=== PATIENT | male | born 1940 | race Caucasian/White ===

== ENCOUNTER 2019-12-07 09:13 | Day surgery (SDC) | payer MEDICARE, OTHER ==
[2019-12-07 11:57] VITALS: BP 151/77
--- NOTE | 2019-12-07 13:18 | Operative Report ---
Operative Report DATE OF SURGERY: 12/07/19 Operative Report: The risks benefits and alternatives of the procedure explained to the patient in detail and informed consent is obtained.A GIF Olympus video scope was inserted into the patient's mouth and hypopharynx ,the esophagus is identified intubated and insufflated ,the scope was then advanced through the esophagus stomach and duodenum, retroflexion maneuver is done, the esophagus stomach and first and second portions of the duodenum examined. PREOPERATIVE DIAGNOSIS: Dysphagia. History of possible achalasia in the past. Referral for GI work-up to rule out Qureshi's esophagus POSTOPERATIVE DIAGNOSIS: Mild Schatzki's ring that is broken with a biopsy forcep. Gastritis status post biopsy. Distal esophageal biopsies obtained to rule out for possible Qureshi's. There is mild predilation of the proximal esophagus; if biopsies are negative may need manometry study OPERATION: EGD with biopsy SURGEON: GOPAL ESTRELLA ANESTHESIA: LMAC TISSUE REMOVED OR ALTERED: As noted above. COMPLICATIONS: None. ESTIMATED BLOOD LOSS: None. INTRAOPERATIVE FINDINGS: As noted above. PROCEDURE: Patient tolerated the procedure well. No immediate postprocedure complications are noted. Patient is discharged in good condition. Discharge date 12/07/2019. Discharge diet: Regular. Discharge activity: Regular. 2 to 3-week follow-up to discuss findings. Patient is instructed to call the office or proceed to the emergency room should there be any further problems or questions. Wait on the pathology.
== END 2019-12-07 11:57 | disposition home or self-care (01) ==
LOC: END 09:13
PROVIDERS: ATTEND Internal Medicine Gastroenterology
DX: K22.2 Esophageal obstruction (principal); K29.50 Unspecified chronic gastritis without bleeding; K22.70 Barrett's esophagus without dysplasia; Z87.891 Personal history of nicotine dependence; E78.5 Hyperlipidemia, unspecified; I10 Essential (primary) hypertension; E11.9 Type 2 diabetes mellitus without complications; Z80.0 Family history of malignant neoplasm of digestive organs; Z79.84 Long term (current) use of oral hypoglycemic drugs; Z79.899 Other long term (current) drug therapy; Z88.8 Allergy status to other drugs, medicaments and biological substances
CPT/HCPCS: 43239; 82962; 88305 ×2; 00731; J2704; J3490; 731

== ENCOUNTER 2020-04-18 03:58 | Emergency (ER) | payer MEDICARE ==
[2020-04-18] MEDS ORDERED: KETOROLAC TROMETHAMINE INJ/PF 30 MG/1 ML SDV IV ONE (04:23)
--- NOTE | 2020-04-18 04:25 | ER Document Report ---
ED General - General Mode of Arrival: Medic Information source: Patient TRAVEL OUTSIDE OF THE [place] IN LAST 30 DAYS: No <TONI OLSON - Last Filed: 04/18/20 07:10> <LIANA AHZEL - Last Filed: 04/18/20 10:55> - General Chief Complaint: Edema Stated Complaint: SWELLING IN FEET Time Seen by Provider: 04/18/20 04:01 Primary Care Provider: ROMELIA GLEASON MD [Primary Care Provider] - Follow up as needed Notes: 80-year-old male patient presenting to the emergency department chief complaint of bilateral leg pain. Patient reports on 04/10 he tried to avoid falling in his home and ended up bruising his right foot and ankle. He did not think much of it until the next morning when he woke up and had severe pain and was unable to bear weight. He states since then he has been using his left leg more and now has left leg pain. Patient went to see Dr. Alex who did an x-ray which was negative, the plan was to send him for an MRI of the right foot next week. Patient reports since then he has had multiple falls. He has not struck his head, he has not lost consciousness. He denies any history of DVT or gout. (TONI OLSON) - Related Data Allergies/Adverse Reactions: lisinopril [Lisinopril] Allergy (Unknown, Verified 12/07/19 09:21) throat itches Past Medical History - Social History Smoking Status: Never Smoker Chew tobacco use (# tins/day): No Frequency of alcohol use: None Drug Abuse: None Patient has homicidal ideation: No - Past Medical History Cardiac Medical History: Reports: Hx Hypercholesterolemia, Hx Hypertension - meds x 3 yrs Denies: Hx Coronary Artery Disease, Hx Heart Attack Pulmonary Medical History: Denies: Hx Asthma, Hx Bronchitis, Hx COPD, Hx Pneumonia Neurological Medical History: Denies: Hx Cerebrovascular Accident, Hx Seizures GI Medical History: Reports: Hx Gastroesophageal Reflux Disease Musculoskeletal Medical History: 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, L SHOULDER Past Surgical History: Reports: Hx Abdominal Surgery - hernia repair, Hx Orthopedic Surgery - hand sx - Immunizations Hx Diphtheria, Pertussis, Tetanus Vaccination: No Hx Pneumococcal Vaccination: 08/25/19 <TONI OLSON - Last Filed: 04/18/20 07:10> - Social History Family History: Reviewed & Not Pertinent <LIANA HAZEL - Last Filed: 04/18/20 10:55> Review of Systems - Review of Systems Constitutional: denies: Fever Musculoskeletal: Leg swelling, Ankle swelling, Other - Bilateral lower extremity pain -: Yes All other systems reviewed and negative <TONI OLSON - Last Filed: 04/18/20 07:10> Physical Exam <TONI OLSON - Last Filed: 04/18/20 07:10> - Vital signs Vitals: Temp Resp Pulse Ox 98.2 F 24 H 97 04/18/20 04:06 04/18/20 04:06 04/18/20 04:06 - Notes Notes: PHYSICAL EXAMINATION: GENERAL: Well-appearing, well-nourished and in no acute distress. HEAD: Atraumatic, normocephalic. EYES: Pupils equal round and reactive to light, extraocular movements intact, sclera anicteric, conjunctiva are normal. ENT: Nares patent, oropharynx clear without exudates. Dry mucous membranes. NECK: Normal range of motion, supple without lymphadenopathy LUNGS: Breath sounds clear to auscultation bilaterally and equal. No wheezes rales or rhonchi. HEART: Regular rate and rhythm without murmurs ABDOMEN: Soft, nontender, nondistended abdomen. No guarding, no rebound. No masses appreciated. Musculoskeletal: Normal range of motion, 1+ pitting edema to bilateral lower extremities. No cyanosis. NEUROLOGICAL: Cranial nerves grossly intact. Normal speech. Normal sensory, motor exams PSYCH: Normal mood, normal affect. SKIN: Slight erythema to dorsal surface of right foot. (TONI OLSON) Course - Laboratory Result Diagrams: 04/18/20 04:30 04/18/20 04:30 <TONI OLSON - Last Filed: 04/18/20 07:10> - Laboratory Result Diagrams: 04/18/20 04:30 04/18/20 04:30 - Diagnostic Test Radiology reviewed: Reports reviewed <LIANA HAZEL - Last Filed: 04/18/20 10:55> - Re-evaluation Re-evalutation: 04/18/20 07:00 Dr. Hernandez came to the bedside and assessed the patient. He made recommendations to add on some lab work, IV fluids and head CT. Patient reports pain has significantly improved since administration of IV Toradol. Handoff given to oncoming shift, Liana Hazel MANAGER CONTENT. (TONI OLSON) 04/18/20 08:00 Assumed care of patient from Toni Olson, MANAGER CONTENT x-rays and Doppler ultrasounds are pending. 04/18/20 09:27 Patient is resting comfortably he remains pain-free at this time. Reviewed all test results with patient. Counseled on need to follow-up outpatient with his primary care physician this week. Counseled to try to rest and elevate his feet to decrease the edema. Also counseled on the need to increase his fluids secondary to dehydration that was noted on his labs here in the emergency room. Patient was given a urinal to take home as he states he is now been drinking because he does not like to get up to pee frequently. He was given strict return to the emergency room guidelines. Return for any new or worsening symptoms. All questions were answered. Patient verbalized understanding and agrees with plan of care. (LIANA HAZEL) - Vital Signs Vital signs: Temp Pulse Resp BP Pulse Ox 98.2 F 16 141/72 H 95 04/18/20 04:08 04/18/20 05:31 04/18/20 05:31 04/18/20 05:31 - Laboratory Laboratory results interpreted by me: 04/18/20 04/18/20 04/18/20 04:30 04:30 04:30 RBC 4.17 L Hgb 12.7 L Hct 37.0 L Lymph % (Auto) 5.8 L Seg Neutrophils % 81.9 H BUN 23 H Creatinine 1.39 H Est GFR (MDRD) Non-Af 49 L Glucose 234 H Uric Acid 2.9 L Discharge <TONI OLSON - Last Filed: 04/18/20 07:10> <LIANA HAZEL - Last Filed: 04/18/20 10:55> - Discharge Clinical Impression: Pedal edema, Right foot pain, Dehydration, Leg pain, bilateral Condition: Stable Disposition: HOME, SELF-CARE Instructions: Dependent Edema ([facility]), Leg Pain Nonspecific ([facility]) Additional Instructions: All your test results showed no fractures, no blood clots in your legs, you were dehydrated when you arrived to the emergency room. It is imperative that you drink more water. Try to rest and elevate feet to decrease edema. Follow-up with your primary care physician this week. Return for any new or worsening symptoms. Can take Tylenol as needed for pain. Referrals: ROMELIA GLEASON MD [Primary Care Provider] - Follow up as needed
[2020-04-18 04:51] LABS: ABSOLUTE LYMPHOCYTES (AUTO) 0.6 10^3/uL (0.5-4.7); ABSOLUTE MONOCYTES (AUTO) 1.1 10^3/uL (0.1-1.4); ABSOLUTE NEUT (AUTO) 7.8 10^3/uL (1.7-8.2); BASOPHILS % (AUTO) 0.2 % (0-2); EOSINOPHILS % (AUTO) 0.3 % (0-6); HEMOGLOBIN 12.7 g/dL (13.5-17.0); LYMPHOCYTES % (AUTO) 5.8 % (13-45); MEAN CORPUSCULAR HEMOGLOBIN 30.4 pg (27.0-33.4); MEAN CORPUSCULAR HGB CONC 34.3 g/dL (32.0-36.0); MEAN CORPUSCULAR VOLUME 89 fl (80-97); MONOCYTES % (AUTO) 11.8 % (3-13); PLATELET COUNT 269 10^3/uL (150-450); RED BLOOD COUNT 4.17 10^6/uL (4.35-5.55); RED CELL DISTRIBUTION WIDTH 13.6 % (11.5-14.0); SEGMENTED NEUTROPHILS % (AUTO) 81.9 % (42-78); TOTAL CELLS COUNTED % (AUTO) 100 %; WHITE BLOOD COUNT 9.6 10^3/uL (4.0-10.5)
[2020-04-18 05:11] LABS: ALKALINE PHOSPHATASE 45 U/L (38-126); ANION GAP 14 (5-19); ASPARTATE AMINO TRANSFERASE 24 U/L (17-59); BILIRUBIN,DIRECT 0.1 mg/dL (0.0-0.4); BILIRUBIN,TOTAL 0.8 mg/dL (0.2-1.3); BLOOD UREA NITROGEN 23 mg/dL (7-20); CALCIUM 9.7 mg/dL (8.4-10.2); CARBON DIOXIDE 23 mmol/L (22-30); CHLORIDE 100 mmol/L (98-107); GLUCOSE 234 mg/dL (75-110); TOTAL PROTEIN 6.8 g/dL (6.3-8.2)
[2020-04-18 05:47] VITALS: BP 141/72
--- NOTE | 2020-04-18 05:47 | RADIOLOGY REPORT (SQ) ---
CT right foot and ankle without contrast on 04/18/2020 at 4:47 AM CLINICAL INDICATION: Right foot and ankle pain TECHNIQUE: Multiple axial images are obtained throughout the right foot and ankle without the administration of contrast. Sagittal and coronal reformatted images are also performed and reviewed. This exam was performed according to our departmental dose-optimization program, which includes automated exposure control, adjustment of the mA and/or kV according to patient size and/or use of iterative reconstruction technique. Total DLP is 122.01 mGy*cm. COMPARISON: None FINDINGS: Subcutaneous edema is noted in the foot and ankle. This may be related to anasarca or cellulitis, please correlate clinically. There are no acute fracture lines. Visualized joints are well aligned. No other bony or soft tissue abnormality is noted. IMPRESSION: Subcutaneous edema in the right foot and ankle that may be related to anasarca or cellulitis. Otherwise no acute abnormality.
[2020-04-18] MEDS ORDERED: NORMAL SALINE 1000 ML 1,000 ML IV ONE (06:29)
--- NOTE | 2020-04-18 07:19 | RADIOLOGY REPORT (SQ) ---
CT head without contrast on 04/18/2020 at 6:39 AM CLINICAL INDICATION: Multiple falls, per protocol for mechanism of injury TECHNIQUE: Multiple axial images are obtained throughout the head without the administration of contrast. This exam was performed according to our departmental dose-optimization program, which includes automated exposure control, adjustment of the mA and/or kV according to patient size and/or use of iterative reconstruction technique. Total DLP is 1017.17 mGy*cm. COMPARISON: None FINDINGS: There is no hydrocephalus. There is a tiny old left caudate lacunar infarct. There is no CT evidence of acute infarct. There is no hemorrhage. There are no abnormal extra-axial fluid collections. There is no mass, mass effect or midline shift. No bony abnormality is noted. IMPRESSION: No acute intracranial abnormality.
--- NOTE | 2020-04-18 08:20 | RADIOLOGY REPORT (SQ) ---
EXAM DESCRIPTION: PELVIS AP IMAGES COMPLETED DATE/TIME: 04/18/2020 7:42 am REASON FOR STUDY: eval for hip fracture COMPARISON: None. NUMBER OF VIEWS: One view TECHNIQUE: AP Pelvis LIMITATIONS: None. FINDINGS: MINERALIZATION: Normal. HIPS: Degenerative changes. No acute fracture or dislocation. No worrisome bone lesions. PELVIS AND SACRUM: No acute fracture or dislocation. No worrisome bone lesions. PUBIS AND ISCHIUM: No acute fracture. LOWER LUMBAR SPINE: No significant findings as visualized. SOFT TISSUES: No findings. OTHER: No other significant finding. IMPRESSION: DEGENERATIVE CHANGES IN THE HIPS. NO ACUTE FINDINGS COMMENT: Pelvic fractures are often occult on plain radiographs. If strong clinical suspicion for f racture, recommend CT or MR. TECHNICAL DOCUMENTATION: JOB ID: [id number] 2010 [employer]- All Rights Reserved Reading location - IP/workstation name: [email or web address]
--- NOTE | 2020-04-18 10:17 | RADIOLOGY REPORT (SQ) ---
EXAM DESCRIPTION: VENOUS BILATERAL LOWER IMAGES COMPLETED DATE/TIME: 04/18/2020 10:08 am REASON FOR STUDY: bilateral leg pain/swelling COMPARISON: None. TECHNIQUE: Dynamic and static louis scale and color images acquired of both lower extremity venous sy stems. Selected spectral images acquired with additional compression and augmentation maneuvers. Imag es stored on PACS. LIMITATIONS: None. FINDINGS: RIGHT LEG COMMON FEMORAL AND FEMORAL: Normal phasicity, compression and augmentation. No visualized echogenic m aterial on louis scale. No defects on color images. POPLITEAL: Normal compression and augmentation. No visualized echogenic material on louis scale. No de fects on color images. CALF VESSELS: Normal compression and augmentation. No visualized echogenic material on louis scale. No defects on color image. GSV AND SSV: GSV patent. Acute occlusive thrombus in the SSV. ANY DEEP VENOUS INSUFFICIENCY: Not evaluated. ANY EVIDENCE OF POPLITEAL CYST: No. OTHER: No other significant finding. LEFT LEG COMMON FEMORAL AND FEMORAL: Normal phasicity, compression and augmentation. No visualized echogenic m aterial on louis scale. No defects on color images. POPLITEAL: Normal compression and augmentation. No visualized echogenic material on louis scale. No de fects on color images. CALF VESSELS: Normal compression and augmentation. No visualized echogenic material on louis scale. No defects on color images. GSV AND SSV: Normal compression. No visualized echogenic material on louis scale. No defects on color images. ANY DEEP VENOUS INSUFFICIENCY: Not evaluated. ANY EVIDENCE POPLITEAL CYST: No. OTHER: No other significant finding. IMPRESSION: THROMBUS IN THE SSV OF THE RIGHT LEG. COMMENT: Preliminary report was called by the technologist to the referring clinician's office at th e time of the exam. TECHNICAL DOCUMENTATION: JOB ID: [id number] 2010 [employer]- All Rights Reserved Reading location - IP/workstation name: [email or web address]
== END 2020-04-18 09:30 | disposition home or self-care (01) ==
LOC: ER 03:58
DX: R60.0 Localized edema (principal); M79.671 Pain in right foot; M79.605 Pain in left leg; E86.0 Dehydration; L53.9 Erythematous condition, unspecified; R29.6 Repeated falls; I10 Essential (primary) hypertension; Z88.8 Allergy status to other drugs, medicaments and biological substances; M25.473 Effusion, unspecified ankle
CPT/HCPCS: 99284; 96361; 96374; 36415; 87040; 82550; 83605; 84550; 85025; 80053; 83880; 93970; 72170; 70450; 73700; J1885; J7030

== ENCOUNTER 2020-11-29 14:42 | Emergency (ER) | payer MEDICARE ==
[2020-11-29] MEDS ORDERED: IBUPROFEN 600 MG TABLET PO ONE (16:01)
--- NOTE | 2020-11-29 16:04 | ER Document Report ---
ED Medical Screen (RME) - General Chief Complaint: Neck Problem Stated Complaint: NECK PAIN Time Seen by Provider: 11/29/20 15:54 Primary Care Provider: ROMELIA GLEASON MD [Primary Care Provider] - Follow up as needed TRAVEL OUTSIDE OF THE [place] IN LAST 30 DAYS: No - HPI Notes: 11/29/20 16:01 80-year-old male with a history of [id number] diabetes, hypertension, hyperlipidemia presents to the emergency room for complaints of neck pain, chest pain with deep breaths which started today, weakness in his legs and diarrhea for the last few days but has resolved with some Imodium. Patient states his tested positive last week for Covid, he assumed himself to be positive and had not been tested. Patient states he is a former smoker, quit over 30 years ago. Patient states that his neck pain is 5 out of 5, severe and constant. Has tried [id number] Tylenol and ibuprofen without relief. Reports when he takes deep breaths and after coughing he has left-sided chest pain, denies any radiation of pain to his back or arm, denies any radiation to his neck. Patient denies any trauma or falling. Patient states has been unable to sleep due to neck pain. I have greeted and performed a rapid initial assessment of this patient. A comprehensive ED assessment and evaluation of the patient, analysis of test results and completion of the medical decision making process will be conducted by additional ED providers. PHYSICAL EXAMINATION: GENERAL: Well-appearing, well-nourished and in no acute distress. EYES: Pupils equal round extraocular movements intact, conjunctiva are normal. NECK: C-spine tenderness on palpation C4 and C5, limited range of motion to the neck CV: s1, s2 regular LUNGS: No respiratory distress Musculoskeletal: Normal range of motion NEUROLOGICAL: Normal speech, normal gait. SKIN: Warm, Dry, normal turgor, no rashes or lesions noted. The patient was evaluated during a global COVID-19 pandemic and that diagnosis was suspected/considered upon their initial presentation. Their evaluation, treatment and testing was consistent with current guidelines for patients who present with complaints or symptoms and may be related to COVID-19. 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, L SHOULDER Past Surgical History: Reports: Hx Abdominal Surgery - hernia repair, Hx Orthopedic Surgery - hand sx - Immunizations Hx Diphtheria, Pertussis, Tetanus Vaccination: No Physical Exam - Vital signs Vitals: Temp Pulse Resp BP Pulse Ox 97.8 F 102 H 21 H 129/69 H 94 11/29/20 15:11/29/20 15:11/29/20 15:11/29/20 15:11/29/20 15:09 Course - Vital Signs Vital signs: Temp Pulse Resp BP Pulse Ox 97.8 F 102 H 21 H 129/69 H 94 11/29/20 15:09 11/29/20 15:09 11/29/20 15:11/29/20 15:11/29/20 15:09 Doctor's Discharge - Discharge Referrals: ROMELIA GLEASON MD [Primary Care Provider] - Follow up as needed
[2020-11-29 16:38] LABS: ABSOLUTE EOSINOPHILS # (AUTO) 0.1 10^3/uL (0.0-0.6); ABSOLUTE LYMPHOCYTES (AUTO) 0.5 10^3/uL (0.5-4.7); ABSOLUTE MONOCYTES (AUTO) 0.8 10^3/uL (0.1-1.4); ABSOLUTE NEUT (AUTO) 3.8 10^3/uL (1.7-8.2); BASOPHILS % (AUTO) 0.6 % (0-2); EOSINOPHILS % (AUTO) 1.5 % (0-6); HEMATOCRIT 34.6 % (37.9-51.0); HEMOGLOBIN 12.2 g/dL (13.5-17.0); MEAN CORPUSCULAR HEMOGLOBIN 30.1 pg (27.0-33.4); MEAN CORPUSCULAR HGB CONC 35.1 g/dL (32.0-36.0); MEAN CORPUSCULAR VOLUME 86 fl (80-97); MONOCYTES % (AUTO) 15.1 % (3-13); PLATELET COUNT 336 10^3/uL (150-450); RED BLOOD COUNT 4.05 10^6/uL (4.35-5.55); RED CELL DISTRIBUTION WIDTH 13.2 % (11.5-14.0); SEGMENTED NEUTROPHILS % (AUTO) 72.8 % (42-78); TOTAL CELLS COUNTED % (AUTO) 100 %; WHITE BLOOD COUNT 5.2 10^3/uL (4.0-10.5)
[2020-11-29 16:55] LABS: ALBUMIN 3.8 g/dL (3.5-5.0); ALKALINE PHOSPHATASE 55 U/L (38-126); ANION GAP 9 (5-19); ASPARTATE AMINO TRANSFERASE 62 U/L (17-59); BILIRUBIN,DIRECT 0.4 mg/dL (0.0-0.4); BILIRUBIN,TOTAL 0.8 mg/dL (0.2-1.3); BLOOD UREA NITROGEN 24 mg/dL (7-20); CALCIUM 9.4 mg/dL (8.4-10.2); CARBON DIOXIDE 25 mmol/L (22-30); CHLORIDE 105 mmol/L (98-107); GLUCOSE 176 mg/dL (75-110); POTASSIUM 4.6 mmol/L (3.6-5.0)
--- NOTE | 2020-11-29 16:57 | ER Document Report ---
ED General - General Chief Complaint: Chest Pain Stated Complaint: NECK PAIN Time Seen by Provider: 11/29/20 15:54 Primary Care Provider: ROMELIA GLEASON MD [Primary Care Provider] - Follow up as needed Notes: Patient is a 80-year-old male that comes emergency department for chief complaint of neck pain, generalized weakness, a few episodes of diarrhea a few days ago. Patient states that he was exposed to his who tested positive for COVID-19 1 week ago. Patient denies sore throat, change in sense of taste or smell, chest pain, shortness of breath, cough, nausea, vomiting, or even headache. He states the diarrhea resolved and he is able to eat without having the diarrhea like previously. He denies any fevers. He states that his neck is hurt for 2 weeks, progressively worse, now he is gradually lost range of motion side to side. He denies any numbness, weakness, or any other areas of pain. He states he could not sleep last night because his neck hurt. Past medical history of hypertension, hyperlipidemia, type 2 diabetes. He denies any smoking, COPD, asthma, or cardiac history. TRAVEL OUTSIDE OF THE [place] IN LAST 30 DAYS: No - Related Data Allergies/Adverse Reactions: lisinopril [Lisinopril] Allergy (Unknown, Verified 11/29/20 18:30) throat itches Home Medications: metformin/ vitamin D,C/ glucosamine/ omeprazole/ Past Medical History - General Information source: Patient - Social History Smoking Status: Former Smoker Chew tobacco use (# tins/day): No Frequency of alcohol use: Rare Drug Abuse: None Lives with: Family Family History: Reviewed & Not Pertinent - Past Medical History Cardiac Medical History: Reports: Hx Hypercholesterolemia, Hx Hypertension - meds x 3 yrs Denies: Hx Coronary Artery Disease, Hx Heart Attack Pulmonary Medical History: Denies: Hx Asthma, Hx Bronchitis, Hx COPD, Hx Pneumonia Neurological Medical History: Denies: Hx Cerebrovascular Accident, Hx Seizures GI Medical History: Reports: Hx Gastroesophageal Reflux Disease Musculoskeletal Medical History: 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, L SHOULDER Past Surgical History: Reports: Hx Abdominal Surgery - hernia repair, Hx Orthopedic Surgery - hand sx - Immunizations Hx Diphtheria, Pertussis, Tetanus Vaccination: Yes Hx Pneumococcal Vaccination: 08/25/19 Review of Systems - Review of Systems Constitutional: See HPI EENT: No symptoms reported Cardiovascular: No symptoms reported Respiratory: No symptoms reported Gastrointestinal: See HPI Genitourinary: No symptoms reported Male Genitourinary: No symptoms reported Musculoskeletal: See HPI Skin: No symptoms reported Hematologic/Lymphatic: No symptoms reported Neurological/Psychological: See HPI Physical Exam - Vital signs Vitals: Temp Pulse Resp BP Pulse Ox 97.8 F 102 H 21 H 129/69 H 94 11/29/20 15:11/29/20 15:11/29/20 15:11/29/20 15:11/29/20 15:09 - Notes Notes: GENERAL: Alert and interactive but irritable. Does not appear to be in distress unless he attempts to move around and does so with discomfort. HEAD: Normocephalic, atraumatic. EYES: Pupils equal, round, and reactive to light. Extraocular movements intact. ENT: Oral mucosa moist, tongue midline. Oropharynx unremarkable. Airway patent. NECK: Full range of motion. Supple. Trachea midline. No lymphadenopathy. No nuchal rigidity. LUNGS: Clear to auscultation bilaterally, no wheezes, rales, or rhonchi. No respiratory distress. Non-tender chest wall. HEART: Regular rate and rhythm. No murmur ABDOMEN: Soft, non-tender. Non-distended. EXTREMITIES: Moves all 4 extremities spontaneously. No edema, normal radial and dorsalis pedis pulses bilaterally. No cyanosis. BACK: There is some generalized tenderness over the neck, there is a lot of tenderness with very tight muscles in the right paracervical musculature and somewhat in the trapezius muscles. Almost no range of motion laterally only slightly to the left. No signs of trauma. No saddle anesthesia, normal distal neurovascular exam. Moves all extremities in full range of motion. NEUROLOGICAL: Alert and oriented x3. Normal speech. Cranial nerves II through XII grossly intact. Strength 5/5 in all extremities. PSYCH: Normal affect, normal mood. SKIN: Warm, dry, normal turgor. No rashes or lesions noted. Course - Re-evaluation Re-evalutation: Patient still has extension flexion of the neck but he cannot laterally move the neck at all except minimally to the left. He has a lot of tenderness to the right trapezius and paracervical muscles with muscle spasm. CT of the neck with a lot of degenerative changes but no acute findings. Chest x-ray shows possibly developing pneumonia. Patient has been exposed to COVID-19 from his and has been tested for this. Patient denies any chest pain, shortness of breath, he does not have hypoxia, he has no symptoms with ambulation except for pain in the neck, he has no other complaints on my evaluation. Patient also denies a headache. Laboratory work-up otherwise unremarkable. I reevaluated patient, patient is demanding to be discharged immediately, declines any additional evaluation, states he will take his antibiotics, requesting medication to release the muscle spasm in his neck, states he will follow-up with primary care, states he will return if he worsens. Discharged with return precautions. - Vital Signs Vital signs: Temp Pulse Resp BP Pulse Ox 98.5 F 98 16 138/76 H 96 11/29/20 19:04 11/29/20 19:04 11/29/20 19:04 11/29/20 19:04 11/29/20 19:04 - Laboratory Results Result Diagrams: 11/29/20 16:25 11/29/20 16:25 Laboratory Results Interpreted: 11/29/20 11/29/20 16:25 16:25 RBC 4.05 L Hgb 12.2 L Hct 34.6 L Lymph % (Auto) 10.0 L [place] % (Auto) 15.1 H BUN 24 H Glucose 176 H AST 62 H ALT 61 H Critical Laboratory Results Reviewed: No Critical Results - Radiology Results Critical Radiology Results Reviewed: No Critical Results - EKG Interpretation by Me Additional EKG results interpreted by me: EKG shows sinus rhythm at a rate of 95, QTC 438, normal axis, no T wave inversi ons or ST segment changes in consecutive leads. Machine reads as normal. Discharge - Discharge Clinical Impression: Neck pain, Generalized weakness, Muscle spasm, Person under investigation for COVID-19 Pneumonia Qualifiers: Pneumonia type: due to unspecified organism Laterality: right Lung location: unspecified part of lung Qualified Code(s): J18.9 - Pneumonia, unspecified organism Condition: Stable Disposition: HOME, SELF-CARE Instructions: COVID-19 Guidance for Persons Under Investigation Additional Instructions: Your neck imaging shows significant degenerative changes but no fracture, dislo cation, or concerning findings otherwise. Your x-ray shows what appears to be developing pneumonia as well. Your remaining work-up does not show any concerning findings. We have tested you for COVID-19, please quarantine while you are awaiting your results. Please take the antibiotic doxycycline as prescribed. I recommend the patches especially to the right side of your neck, we have also prescribed you Valium to help with the bad muscle spasms in your neck, this can cause some sedation and the feeling of being high, please take the low dose first and adjust as tolerated. Follow-up with primary care for additional management of your neck, you have been provided with a copy of the report of your CAT scan. Return if you worsen including developing fever, difficulty breathing, chest emeterio n, numbness, severe headache, vomiting, or any other concerning symptoms. Prescriptions: Diazepam [Valium 5 mg Tablet] 2.5 - 5 mg PO TID PRN #10 tablet PRN Reason: Doxycycline Hyclate [Vibramycin 100 mg Tablet] 100 mg PO BID 7 Days #14 tablet Referrals: ROMELIA GLEASON MD [Primary Care Provider] - Follow up as needed
--- NOTE | 2020-11-29 17:21 | RADIOLOGY REPORT (SQ) ---
EXAM DESCRIPTION: CHEST SINGLE VIEW IMAGES COMPLETED DATE/TIME: 11/29/2020 5:08 pm REASON FOR STUDY: +covid, chest pain with coughing COMPARISON: None. EXAM PARAMETERS: NUMBER OF VIEWS: One view. TECHNIQUE: Single frontal radiographic view of the chest acquired. RADIATION DOSE: NA LIMITATIONS: None. FINDINGS: LUNGS AND PLEURA: Patchy consolidation in the periphery of the right upper lung and right lung base. The left lung is clear. No pneumothorax. MEDIASTINUM AND HILAR STRUCTURES: No masses. Contour normal. HEART AND VASCULAR STRUCTURES: Heart normal in size. Normal vasculature. BONES: No acute findings. HARDWARE: None in the chest. OTHER: No other significant finding. IMPRESSION: 1. Patchy consolidation in the periphery of the right upper lung and at the right lung base. Considerations for these findings include pneumonia. TECHNICAL DOCUMENTATION: JOB ID: [id number] 2010 [employer]- All Rights Reserved Reading location - IP/workstation name: [email or web address]
--- NOTE | 2020-11-29 17:47 | RADIOLOGY REPORT (SQ) ---
EXAM DESCRIPTION: CT CERVICAL SPINE WITHOUT IMAGES COMPLETED DATE/TIME: 11/29/2020 5:22 pm REASON FOR STUDY: neck pain COMPARISON: None. TECHNIQUE: Axial images acquired through the cervical spine without intravenous contrast. Images re viewed with lung, soft tissue and bone windows. Reconstructed coronal and sagittal MPR images review ed. Images stored on PACS. All CT scanners at this facility use dose modulation, iterative reconstruction, and/or weight based d osing when appropriate to reduce radiation dose to as low as reasonably achievable (ALARA). [facility]: Dose Right [facility]: CareDose [facility]: Dose Right [facility]: Teradose 4D [facility]: Smart [place]le RADIATION DOSE: CT Rad equipment meets quality standard of care and radiation dose reduction techniq ues were employed. CTDIvol: 20.2 mGy. DLP: 456 mGy-cm. LIMITATIONS: None. FINDINGS: ALIGNMENT: Anatomic. MINERALIZATION: Normal. VERTEBRAL BODIES: No fractures or dislocation. DISCS: Degenerative changes at the occipital atlanto and atlanto-axial joints. Small central disc p rotrusions at C3-C4 and C5-C6. 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 F oraminal mild to moderate narrowing on the right at C4-C5. No fractures. No dislocation. No acute findings. HARDWARE: None in the spine. VISUALIZED RIBS: No fractures. LUNG APICES AND SOFT TISSUES: No significant or acute findings. OTHER: No other significant finding. IMPRESSION: 1. 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 Degenerative changes at the o ccipital atlanto and atlanto-occipital joints. 2. Small central disc protrusions at C3-C4 and C5-C6. Mild to moderate foraminal narrowing on the r ight at C4-C5. TECHNICAL DOCUMENTATION: JOB ID: [id number] Quality ID # [id number]: Final reports with documentation of one or more dose reduction techniques (e.g., Au tomated exposure control, adjustment of the mA and/or kV according to patient size, use of iterative reconstruction technique) 2010 [employer]- All Rights Reserved Reading location - IP/workstation name: [email or web address]
[2020-11-29] MEDS ORDERED: DOXYCYCLINE HYCLATE 100 MG TABLET PO ONE (18:44)
[2020-11-29 19:14] VITALS: BP 138/76
--- NOTE | 2020-11-30 00:40 | EKG REPORT ---
SEVERITY:- NORMAL ECG - SINUS RHYTHM : Confirmed by: Richard Kemp 30-Nov-2020 00:40:24
== END 2020-11-29 19:05 | disposition home or self-care (01) ==
LOC: ER 14:42
DX: U07.1 COVID-19 (principal); J18.9 Pneumonia, unspecified organism; M62.838 Other muscle spasm; M54.2 Cervicalgia; R53.1 Weakness; R07.9 Chest pain, unspecified; E11.9 Type 2 diabetes mellitus without complications; I10 Essential (primary) hypertension; E78.5 Hyperlipidemia, unspecified; E78.00 Pure hypercholesterolemia, unspecified
CPT/HCPCS: 93005; 99285; 36415; 83690; 85025; 80053; 84484; 71045; 72125; 93010; U0003; A9270 ×2; C9803; 87635

== ENCOUNTER 2020-12-03 16:20 | Emergency (ER) | payer MEDICARE ==
--- NOTE | 2020-12-03 18:47 | ER Document Report ---
ED Neck/Back Problem - General Chief Complaint: Neck Pain >24hrs old Stated Complaint: NECK PAIN Time Seen by Provider: 12/03/20 18:35 Primary Care Provider: ROMELIA GLEASON MD [Primary Care Provider] - Follow up as needed TRAVEL OUTSIDE OF THE [place] IN LAST 30 DAYS: No - Related Data Allergies/Adverse Reactions: lisinopril [Lisinopril] Allergy (Unknown, Verified 11/29/20 18:30) throat itches Home Medications: Metformin Past Medical History - Social History Smoking Status: Former Smoker Chew tobacco use (# tins/day): No Frequency of alcohol use: None Drug Abuse: None Family History: Reviewed & Not Pertinent - Past Medical History Cardiac Medical History: Reports: Hx Hypercholesterolemia, Hx Hypertension - meds x 3 yrs Denies: Hx Coronary Artery Disease, Hx Heart Attack Pulmonary Medical History: Denies: Hx Asthma, Hx Bronchitis, Hx COPD, Hx Pneumonia Neurological Medical History: Denies: Hx Cerebrovascular Accident, Hx Seizures GI Medical History: Reports: Hx Gastroesophageal Reflux Disease Musculoskeletal Medical History: 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, L SHOULDER Past Surgical History: Reports: Hx Abdominal Surgery - hernia repair, Hx Orthopedic Surgery - hand sx - Immunizations Hx Diphtheria, Pertussis, Tetanus Vaccination: Yes Hx Pneumococcal Vaccination: 08/25/19 Physical Exam - Vital signs Vitals: Temp Pulse Resp BP Pulse Ox 97.7 F 106 H 22 H 144/83 H 97 12/03/20 16:26 12/03/20 16:26 12/03/20 16:26 12/03/20 16:26 12/03/20 16:26 Course - Vital Signs Vital signs: Temp Pulse Resp BP Pulse Ox 97.7 F 106 H 22 H 144/83 H 97 12/03/20 16:26 12/03/20 16:26 12/03/20 16:26 12/03/20 16:26 12/03/20 16:26 Discharge - Discharge Referrals: ROMELIA GLEASON MD [Primary Care Provider] - Follow up as needed
--- NOTE | 2020-12-03 18:49 | ER Document Report ---
ED Neck/Back Problem - General Chief Complaint: Neck Pain >24hrs old Stated Complaint: NECK PAIN Time Seen by Provider: 12/03/20 18:35 Primary Care Provider: ROMELIA GLEASON MD [Primary Care Provider] - Follow up as needed Mode of Arrival: Ambulatory Information source: Patient Notes: This 80-year-old man presenting to the emergency department with a complaint of neck pain. He was seen in ER on Saturday of this week with severe pain in the neck. He was also diagnosed with coronavirus positive on the same date. He denies shortness of breath or GI symptoms. He is here primarily because of the neck pain. He denies numbness or tingling in the arms or hands. He also denies a interval injury. CT of the cervical spine that was performed 11/29/2020 revealed diffuse degenerative cervical spine disease. TRAVEL OUTSIDE OF THE [place] IN LAST 30 DAYS: No - Related Data Allergies/Adverse Reactions: lisinopril [Lisinopril] Allergy (Unknown, Verified 11/29/20 18:30) throat itches Home Medications: Metformin Past Medical History - Social History Smoking Status: Former Smoker Chew tobacco use (# tins/day): No Frequency of alcohol use: None Drug Abuse: None Family History: Reviewed & Not Pertinent - Past Medical History Cardiac Medical History: Reports: Hx Hypercholesterolemia, Hx Hypertension - meds x 3 yrs Denies: Hx Coronary Artery Disease, Hx Heart Attack Pulmonary Medical History: Denies: Hx Asthma, Hx Bronchitis, Hx COPD, Hx Pneumonia Neurological Medical History: Denies: Hx Cerebrovascular Accident, Hx Seizures GI Medical History: Reports: Hx Gastroesophageal Reflux Disease Musculoskeletal Medical History: 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 HENT: See HPI Eyes: Negative for visual changes. Cardiovascular: Negative for chest pain. Respiratory: Negative for shortness of breath. Gastrointestinal: Negative for abdominal pain, vomiting or diarrhea. Genitourinary: Negative for dysuria. Musculoskeletal: Negative for back pain. Skin: Negative for rash. Neurological: Negative for headaches, weakness or numbness. 10 point ROS negative except as marked above and in HPI. Physical Exam - Vital signs Vitals: Temp Pulse Resp BP Pulse Ox 97.7 F 106 H 22 H 144/83 H 97 12/03/20 16:26 12/03/20 16:26 12/03/20 16:26 12/03/20 16:26 12/03/20 16:26 - Notes Notes: PHYSICAL EXAMINATION: Physical Exam: General: Well-nourished well-developed in no acute distress HEENT: NC/AT, pupils equal round and reactive to light, MM moist,nares clear, oropharynx clear, airway patent Neck: supple, no adenopathy, no masses. Increased pain with cervical rotation of the neck, + flexion and extension tact. Lungs: clear, no wheezing, no rales no rhonchi CVS: Regular rate and rhythm no murmur gallop or rub Abdomen: Soft, active, nontender, no masses, no hepatosplenomegaly Ext: No edema, clubbing or cyanosis. Neuro: Alert and responsive, moving all 4 extremities on command, cranial nerves intact, no focal findings Skin: Intact no open lesions, no rash Course - Re-evaluation Re-evalutation: 12/03/20 18:56 Presenting primarily for pain in the neck and associated spasms. He has been having the symptoms for some time but worsened on Saturday he was seen in the emergency department at that time. CT scan was performed which revealed degenerative disease. He has no neurologic findings. We will treat his pain given 60 of Toradol, 5 of diazepam and 4 mg of Decadron. He is coronavirus positive and the he does not have respiratory symptoms. 12/03/20 20:16 Has received medications and states that he is getting relief of the severe pain. I have explained to him that we will not be able to manage his pain long- term however, he is being given a dispense pack of [place] and a prescription has been sent to the pharmacy for a muscle relaxant and anti-inflammatory pain medication. I encouraged him to follow-up with his primary care doctor on Saturday for long-term management strategy. Patient understands this plan and is in agreement. - Vital Signs Vital signs: Temp Pulse Resp BP Pulse Ox 98.3 F 80 16 144/80 H 95 12/03/20 20:56 12/03/20 20:56 12/03/20 20:56 12/03/20 20:56 12/03/20 20:56 - Laboratory Results Critical Laboratory Results Reviewed: No Critical Results - Radiology Results Critical Radiology Results Reviewed: No Critical Results Discharge - Discharge Clinical Impression: Neck pain, Muscle spasm, Coronavirus infection Condition: Good Disposition: HOME, SELF-CARE Instructions: Myofascial Pain ([facility]) Additional Instructions: [facility] associated with degenerative disc disease of the cervical spine. Of note you were also tested positive for the coronavirus on 11/29/2020. Please use the medications as prescribed, increase your fluid intake while taking these medications. If your symptoms are worsening or if you have other concerns you may return to the emergency department for further evaluation and treatment Please follow-up with your doctor, call on Saturday regarding long-term management strategies for your neck pain. HOME CARE INSTRUCTIONS & INFORMATION: Thank you for choosing us for your medical needs. We hope you're satisfied with the care you received. After you leave, you must properly care for your problem and, at the same time, observe its progress. Any condition can change. Some illnesses can change rapidly over hours or days. If your condition worsens, return to the Emergency Department or see your physician promptly. ABOUT YOUR X-RAYS AND EKG'S: If you had an EKG or X-rays taken, they have been read by the Emergency Physician. The X-rays and EKG's will also be read by a Radiologist or Patient Services Assistant within 24 hours. If discrepancies are noted, you will be notified by telephone. Please be certain the ED has a correct telephone number & address where you can be reached. Also, realize that some fractures or abnormalities do not show up on initial X-rays. If your symptoms continue, see your physician. ABOUT YOUR LABORATORY TEST: If you had laboratory tests, the results have been reviewed by the Emergency Physician. Some test results (for example cultures) may not be available for several days. You will be contacted if any test result shows you need additional treatment. Please be certain the ED has a correct telephone number and address where you can be reached. ABOUT YOUR MEDICATIONS: You will receive instructions on how to take your medicine on the prescription label you receive. Additional information may be provided by the Pharmacy. If you have questions afterwards, call the ED for clarification or further instructions. Some prescribed medications may cause drowsiness. Do not perform tasks such as driving a car or operating machinery without consulting your Pharmacist. If you feel you need a refill of pain medication, your condition will need re-evaluation. Please do not call for a refill of any medication. ABOUT YOUR SIGNATURE: Signature of this document acknowledges to followin. Understanding that you received emergency treatment and that you may be released before al medical problems are known or treated. Please be certain the ED has a correct phone number & address where you can be reached. 2. Acknowledgement that you will arrange for follow-up care as recommended. 3. Authorization for the Emergency Physician to provide information to your follow-up Physician in order to maximize your care. AT ANY TIME, IF YOUR SYMPTOMS CHANGE SIGNIFICANTLY OR WORSEN OR YOU DEVELOP NEW SYMPTOMS, RETURN TO THE EMERGENCY DEPARTMENT IMMEDIATELY FOR RE-EVALUATION. OUR GOAL IS TO PROVIDE EXCELLENT MEDICAL CARE! WE HOPE THAT WE HAVE MET YOUR EXPECTATIONS DURING YOUR EMERGENCY DEPARTMENT VISIT AND THAT YOU FEEL YOU HAVE RECEIVED EXCELLENT CARE! Prescriptions: Methocarbamol [Robaxin 750 mg Tablet] 750 mg PO Q4 PRN #40 tablet PRN Reason: Muscle Spasms Referrals: ROMELIA GLEASON MD [Primary Care Provider] - Follow up as needed
[2020-12-03] MEDS ORDERED: DIAZEPAM INJ 10 MG/2 ML DISP.SYRIN IM ONE (18:57)
[2020-12-03] MEDS ORDERED: KETOROLAC TROMETHAMINE INJ/PF 30 MG/1 ML SDV IV ONE (18:57)
[2020-12-03] MEDS ORDERED: DEXAMETHASONE SOD PHOS INJ 10 MG/1 ML VIAL IM ONE (18:59)
[2020-12-03] MEDS ORDERED: HYDROCODONE/ACETAMINOPHEN 5-325 MG (6 TAB/ER DISP) PO PRN (20:26)
[2020-12-03 20:58] VITALS: BP 144/80
== END 2020-12-03 21:01 | disposition home or self-care (01) ==
LOC: ER 16:20
DX: U07.1 COVID-19 (principal); M54.2 Cervicalgia; M62.838 Other muscle spasm; E78.00 Pure hypercholesterolemia, unspecified; I10 Essential (primary) hypertension
CPT/HCPCS: 99284; 96372; 96374; J3360; J1885; J1100; A9270